=== PATIENT | female | born 2000 | race African-American/Black ===

== ENCOUNTER 2018-07-05 13:36 | Inpatient (IN) ==
[2018-07-05] MEDS ORDERED: ONDANSETRON 4 MG/2 ML VIAL IV PRN (14:06)
[2018-07-05] MEDS: LACTATED RINGERS 1,000 ML IV SCH (14:19)
[2018-07-05] MEDS ORDERED: OXYTOCIN/LR 20 UNIT/1,000 ML BAG IV SCH (14:30)
[2018-07-05 14:46] LABS: Eosinophils % 0.1 % (0.00-10.9); Hematocrit 28.2 VOL% (35.7-47.0); Hemoglobin 8.4 GM/DL (12.0-16.0); Immature Granulocytes % 0.6 %; Immature Granulocytes Absolute 0.04 #; Lymphocytes # 1.1 10*3/uL (1.4-4.0); Lymphocytes % 15.7 % (21.3-54.2); Mean Corpuscular HGB Conc 29.8 GM/DL (32-36); Mean Corpuscular Hemoglobin 25 PG (27-34); Mean Corpuscular Volume 84.9 FL (87-102); Mean Platelet Volume 10.7 FL (9.6-12.0); Monocytes # 0.5 10*3/uL (0.11-0.8); Monocytes % 6.8 % (1.7-12.7); NRBC # 0.04 10*3/uL; Neutrophils # 5.3 10*3/uL (1.4-7.4); Neutrophils % 76.8 % (38.7-73.9); Platelet Count 228 T/CUMM (130-400); Red Blood Count 3.32 MC/CUMM (3.8-5.5); Red Cell Distribution Width 13.8 % (9.3-17.3); White Blood Count 6.9 T/CUMM (4-12)
[2018-07-05] MEDS ORDERED: MEPERIDINE 50 MG/1 ML VIAL IV PRN (18:08)
[2018-07-05] MEDS ORDERED: FAMOTIDINE 20 MG/2 ML VIAL IV ONE (19:05)
[2018-07-05] MEDS ORDERED: CITRIC ACID/SODIUM CITRATE 30 ML UDCUP PO ONE (19:05)
[2018-07-05] MEDS ORDERED: ePHEDrine 50 MG/ML AMP ONE (19:10)
[2018-07-05] MEDS ORDERED: fentaNYL 2 MCG/ROPIV 0.2% EPID 100 ML EPIDURAL SCH (19:30)
[2018-07-05 21:20] LABS: Apearance,Urine CLEAR (Clear); Bacteria,Urine Occasional /HPF (Few); Bilirubin,Urine Negative (Negative); Blood, Urine Negative (Negative); Glucose,Urine (UA) Negative (Negative); Ketones,Urine 5 mg/dL (Negative); Mucus,Urine Occasional /LPF (Occasional); Nitrite,Urine Negative (Negative); Protein,Urine 100 MG/DL; RBC,Urine 1 /HPF (0-4); Squamous Epithelial Cell,Urine Occasional /HPF (0-10); Urine Color Yellow (Yellow); Urine Specific Gravity 1.014 (1.001-1.035); Urine Urobilinogen < 2.0 EU/DL (0.2-1.0); WBC,Urine 1 /HPF (0-6)
[2018-07-05] MEDS ORDERED: PROMETHAZINE 25 MG/1 ML VIAL IM PRN (22:14)
[2018-07-05] MEDS ORDERED: PROMETHAZINE 25 MG/1 ML VIAL ONE (22:15)
[2018-07-06] MEDS ORDERED: METHYLERGONOVINE 0.2 MG/1 ML AMP ONE (01:16)
[2018-07-06] MEDS ORDERED: miSOPROStol 200 MCG TABLET ONE (01:16)
[2018-07-06] MEDS ORDERED: CARBOPROST TROMETHAMINE 250 MCG/ML AMP IM ONE (01:17)
[2018-07-06 02:38] LABS: Cord Arterial Blood HCO3 19.1 MMOL/L
[2018-07-06 02:41] LABS: Cord Venous Blood HCO3 20.5 MMOL/L; Cord Venous Blood PCO2 37.7 MMHG; Cord Venous Blood PO2 32.4
[2018-07-06] MEDS ORDERED: ACETAMINOPHEN 325 MG TABLET PO PRN (02:52)
[2018-07-06] MEDS ORDERED: WITCH HAZEL PADS 100/JAR TOP PRN (02:52)
[2018-07-06] MEDS ORDERED: BENZOCAINE 20%/MENTHOL 0.5% SPRAY 56 GM CAN TOP PRN (02:52)
[2018-07-06] MEDS ORDERED: BISACODYL 10 MG SUPP RECTAL PRN (02:52)
[2018-07-06] MEDS ORDERED: oxyCODONE/ACETAMINOPHEN 5-325 MG TABLET PO PRN (02:52)
[2018-07-06] MEDS ORDERED: HYDROCORTISONE 2.5% RECTAL CREAM 30 GM TUBE TOP PRN (02:52)
[2018-07-06] MEDS ORDERED: LANOLIN 50% CREAM 0.3 OZ TUBE TOP PRN (02:52)
[2018-07-06] MEDS ORDERED: MEASLES/MUMPS/RUBELLA VACCINE 0.5 ML VIAL SUBCUT ONE (03:00)
[2018-07-06] MEDS ORDERED: DIPH/TET/ACEL PERT BOOSTER VACCINE 0.5 ML VIAL IM ONE (03:00)
[2018-07-06] MEDS ORDERED: RHO(D) IMMUNE GLOBULIN 300 MCG SYRINGE IM ONE (03:00)
[2018-07-06] MEDS: oxyCODONE/ACETAMINOPHEN 5-325 MG TABLET PO PRN (06:11)
[2018-07-06] MEDS: IBUPROFEN 800 MG TABLET PO PRN ×2 (09:22→17:15)
[2018-07-06] MEDS: ACETAMINOPHEN/CODEINE 300-30 MG TABLET PO PRN ×2 (09:23→17:16)
[2018-07-06] MEDS: DOCUSATE SODIUM 100 MG CAPSULE PO SCH ×2 (09:23→22:35)
[2018-07-06] MEDS ORDERED: ONDANSETRON 4 MG/2 ML VIAL ONE (12:58)
[2018-07-06] MEDS: LACTATED RINGERS 1,000 ML IV SCH (17:08)
[2018-07-07] MEDS: ACETAMINOPHEN/CODEINE 300-30 MG TABLET PO PRN (00:01)
[2018-07-07] MEDS ORDERED: SIMETHICONE CHEW 80 MG TABLET PO PRN (00:53)
[2018-07-07] MEDS ORDERED: ACETAMINOPHEN 500 MG TABLET PO PRN (05:13)
[2018-07-07] MEDS: IBUPROFEN 800 MG TABLET PO PRN ×2 (06:14→18:19)
[2018-07-07] MEDS: DOCUSATE SODIUM 100 MG CAPSULE PO SCH ×2 (08:17→21:22)
[2018-07-07] MEDS: oxyCODONE/ACETAMINOPHEN 5-325 MG TABLET PO PRN (08:18)
[2018-07-07 09:07] LABS: Basophils % 0.1 % (0.0-0.8); Eosinophils % 0.2 % (0.00-10.9); Hematocrit 21.7 VOL% (35.7-47.0); Immature Granulocytes % 0.7 %; Lymphocytes # 0.8 10*3/uL (1.4-4.0); Mean Corpuscular HGB Conc 29.5 GM/DL (32-36); Mean Corpuscular Hemoglobin 25 PG (27-34); Mean Corpuscular Volume 84.1 FL (87-102); Mean Platelet Volume 10.2 FL (9.6-12.0); Monocytes # 0.7 10*3/uL (0.11-0.8); Monocytes % 5.4 % (1.7-12.7); NRBC # 0.02 10*3/uL; Neutrophils % 87.6 % (38.7-73.9); Platelet Count 151 T/CUMM (130-400); Red Blood Count 2.58 MC/CUMM (3.8-5.5); Red Cell Distribution Width 14.3 % (9.3-17.3); White Blood Count 13.7 T/CUMM (4-12)
[2018-07-07 09:11] LABS: Hemoglobin 6.4 GM/DL (12.0-16.0)
[2018-07-07] MEDS ORDERED: SODIUM CHLORIDE 0.9% 1,000 ML IV PRN (09:30)
[2018-07-07] MEDS ORDERED: LACTATED RINGERS 1,000 ML IV SCH (20:30)
[2018-07-08 05:43] LABS: Basophils % 0.1 % (0.0-0.8); Eosinophils # 0.2 10*3/uL (0.0-0.87); Eosinophils % 1.5 % (0.00-10.9); Hematocrit 26.9 VOL% (35.7-47.0); Immature Granulocytes % 0.7 %; Immature Granulocytes Absolute 0.09 #; Lymphocytes # 1.7 10*3/uL (1.4-4.0); Mean Corpuscular HGB Conc 31.2 GM/DL (32-36); Mean Corpuscular Hemoglobin 26 PG (27-34); Mean Corpuscular Volume 84.3 FL (87-102); Mean Platelet Volume 10.5 FL (9.6-12.0); Monocytes % 7.2 % (1.7-12.7); NRBC # 0.02 10*3/uL; Neutrophils # 10.4 10*3/uL (1.4-7.4); Neutrophils % 77.5 % (38.7-73.9); Platelet Count 160 T/CUMM (130-400); Red Cell Distribution Width 13.8 % (9.3-17.3); White Blood Count 13.4 T/CUMM (4-12)
[2018-07-08 06:07] LABS: Red Blood Count 3.19 MC/CUMM (3.8-5.5)
[2018-07-08 06:08] LABS: Hemoglobin 8.4 GM/DL (12.0-16.0)
[2018-07-08] MEDS: IBUPROFEN 800 MG TABLET PO PRN (07:19)
[2018-07-08] MEDS: oxyCODONE/ACETAMINOPHEN 5-325 MG TABLET PO PRN (07:20)
[2018-07-08 07:21] VITALS: BP 122/75
[2018-07-08] MEDS: FERROUS SULFATE 325 MG TABLET PO SCH ×2 (07:21→09:19)
[2018-07-08] MEDS: DOCUSATE SODIUM 100 MG CAPSULE PO SCH ×2 (07:21→09:19)
== END 2018-07-08 11:00 | disposition home or self-care (01) | DRG 560 ==
LOC: N.LDOUT 13:36 → N.LD 13:38 → N.OB 07-07 07:05
PROVIDERS: ADMIT Obstetrics & Gynecology; ATTEND Obstetrics & Gynecology

== ENCOUNTER 2019-09-17 12:23 | Inpatient (IN) ==
[2019-09-17] MEDS ORDERED: MEPERIDINE 50 MG/1 ML VIAL IV PRN (13:25)
[2019-09-17] MEDS ORDERED: BUTORPHANOL 2 MG/ML VIAL IV PRN (13:25)
[2019-09-17] MEDS ORDERED: ONDANSETRON 4 MG/2 ML VIAL IV PRN (13:25)
[2019-09-17] MEDS ORDERED: LACTATED RINGERS 1,000 ML IV SCH (13:30)
[2019-09-17 13:50] LABS: Basophils % 0.2 % (0.0-0.8); Eosinophils % 0.3 % (0.00-10.9); Hematocrit 30.8 VOL% (35.7-47.0); Hemoglobin 9.7 GM/DL (12.0-16.0); Immature Granulocytes % 0.9 %; Immature Granulocytes Absolute 0.06 #; Lymphocytes # 1.3 10*3/uL (1.4-4.0); Lymphocytes % 20.3 % (21.3-54.2); Mean Corpuscular HGB Conc 31.5 GM/DL (32-36); Mean Corpuscular Volume 92.8 FL (87-102); NRBC # 0.02 10*3/uL; Neutrophils % 67.3 % (38.7-73.9); Platelet Count 190 T/CUMM (130-400); Red Blood Count 3.32 MC/CUMM (3.8-5.5); Red Cell Distribution Width 13.4 % (9.3-17.3); White Blood Count 6.5 T/CUMM (4-12)
[2019-09-17 14:26] LABS: Albumin 2.7 G/DL (3.4-5.0); Bilirubin,Total 0.4 MG/DL (0.2-1.0); Calcium 8.1 MG/DL (8.5-10.1); Osmolality,Calculated 274.4 MOS/KG (273-304); Total Protein 6.5 G/DL (6.4-8.3)
[2019-09-17] MEDS ORDERED: DINOPROSTONE 10 MG VAG.INSERT VAG ONE (17:32)
[2019-09-18] MEDS: OXYTOCIN/LR 20 UNIT/1,000 ML BAG IV SCH ×2 (02:03→15:17)
[2019-09-18] MEDS: AMPICILLIN INJ 2,000 MG in SODIUM CHLORIDE 0.9% 100 ML IV SCH ×2 (02:35→08:22)
[2019-09-18] MEDS ORDERED: LACTATED RINGERS 1,000 ML IV ONE (09:59)
[2019-09-18] MEDS ORDERED: FAMOTIDINE 20 MG/2 ML VIAL IV ONE (09:59)
[2019-09-18] MEDS ORDERED: hydrOXYzine HCL 25 MG/1 ML VIAL IM PRN (09:59)
[2019-09-18] MEDS ORDERED: ePHEDrine 50 MG/ML AMP IV PRN (09:59)
[2019-09-18] MEDS ORDERED: CITRIC ACID/SODIUM CITRATE 30 ML UDCUP PO ONE (09:59)
[2019-09-18] MEDS ORDERED: NALOXONE 0.4 MG/ML VIAL IV PRN (09:59)
[2019-09-18] MEDS ORDERED: PROMETHAZINE 25 MG/1 ML VIAL IM ONE (09:59)
[2019-09-18] MEDS ORDERED: diphenhydrAMINE 50 MG/1 ML VIAL IV PRN ×2 (09:59)
[2019-09-18] MEDS ORDERED: fentaNYL 2 MCG/ROPIV 0.2% EPID 100 ML EPIDURAL SCH (10:00)
[2019-09-18] MEDS ORDERED: LIDOCAINE 1% 50 ML VIAL ONE (12:13)
[2019-09-18] MEDS ORDERED: miSOPROStoL 200 MCG TABLET ONE (12:13)
[2019-09-18] MEDS ORDERED: METHYLERGONOVINE 0.2 MG/1 ML AMP ONE (12:14)
[2019-09-18 13:17] LABS: Cord Venous Blood HCO3 18.4 MMOL/L; Cord Venous Blood PCO2 45.3 MMHG; Cord Venous Blood PO2 28.2
[2019-09-18 13:20] LABS: Cord Arterial Blood HCO3 18.6 MMOL/L
[2019-09-18] MEDS ORDERED: BISACODYL 10 MG SUPP RECTAL PRN (16:16)
[2019-09-18] MEDS ORDERED: BENZOCAINE 20%/MENTHOL 0.5% SPRAY 56 GM CAN TOP PRN (16:16)
[2019-09-18] MEDS ORDERED: OXYTOCIN/LR 20 UNIT/1,000 ML BAG IV ONE (16:16)
[2019-09-18] MEDS ORDERED: HYDROCORTISONE 2.5% RECTAL CREAM 30 GM TUBE TOP PRN (16:16)
[2019-09-18] MEDS ORDERED: DIPH/TET/ACEL PERT BOOSTER VACCINE 0.5 ML VIAL IM ONE (16:16)
[2019-09-18] MEDS ORDERED: RHO(D) IMMUNE GLOBULIN 300 MCG SYRINGE IM ONE (16:16)
[2019-09-18] MEDS ORDERED: ACETAMINOPHEN 325 MG TABLET PO PRN (16:16)
[2019-09-18] MEDS ORDERED: MEASLES/MUMPS/RUBELLA VACCINE 0.5 ML VIAL SUBCUT ONE (16:16)
[2019-09-18] MEDS ORDERED: oxyCODONE/ACETAMINOPHEN 5-325 MG TABLET PO PRN (16:16)
[2019-09-18] MEDS ORDERED: LANOLIN 50% CREAM 0.3 OZ TUBE TOP PRN (16:16)
[2019-09-18] MEDS ORDERED: WITCH HAZEL PADS 100/JAR TOP PRN (16:16)
[2019-09-18] MEDS: DOCUSATE SODIUM 100 MG CAPSULE PO SCH (21:03)
[2019-09-19] MEDS: oxyCODONE/ACETAMINOPHEN 5-325 MG TABLET PO PRN ×2 (02:34→20:36)
[2019-09-19] MEDS: IBUPROFEN 800 MG TABLET PO PRN ×2 (02:34→20:36)
[2019-09-19 05:23] LABS: Eosinophils # 0.1 10*3/uL (0.0-0.87); Eosinophils % 0.6 % (0.00-10.9); Hematocrit 29.4 VOL% (35.7-47.0); Hemoglobin 9.4 GM/DL (12.0-16.0); Immature Granulocytes % 0.5 %; Immature Granulocytes Absolute 0.05 #; Lymphocytes % 20.2 % (21.3-54.2); Mean Corpuscular Volume 91.9 FL (87-102); Mean Platelet Volume 10.4 FL (9.6-12.0); Monocytes % 8.8 % (1.7-12.7); Neutrophils % 69.9 % (38.7-73.9); Platelet Count 169 T/CUMM (130-400); Red Cell Distribution Width 13.6 % (9.3-17.3); White Blood Count 9.7 T/CUMM (4-12)
[2019-09-19] MEDS: DOCUSATE SODIUM 100 MG CAPSULE PO SCH ×2 (08:27→20:36)
[2019-09-19] MEDS: FERROUS SULFATE 325 MG TABLET PO SCH ×2 (08:27→20:36)
[2019-09-20 07:20] VITALS: BP 120/58
[2019-09-20] MEDS: DOCUSATE SODIUM 100 MG CAPSULE PO SCH (08:17)
[2019-09-20] MEDS: FERROUS SULFATE 325 MG TABLET PO SCH (08:17)
== END 2019-09-20 15:15 | disposition home or self-care (01) | DRG 560 ==
LOC: N.LDOUT 12:23 → N.LD 12:24 → N.OB 09-18 16:14
PROVIDERS: ADMIT Obstetrics & Gynecology; ATTEND Obstetrics & Gynecology